=== PATIENT | female | born 2000 | race American Indian/Alaskan Native ===

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

== ENCOUNTER 2019-02-18 10:29 | Emergency (ER) | payer OTHER ==
[2019-02-18 10:38] VITALS: BP 132/79
[2019-02-18 11:36] LABS: HCG Qualitative,Urine Negative (Negative)
--- NOTE | 2019-02-18 11:37 | Emergency Department Report ---
ED General Adult HPI - General Chief complaint: Abdominal Pain Stated complaint: STOMACH PAIN Time Seen by Provider: 02/18/19 11:31 Source: patient Mode of arrival: Ambulatory Limitations: No Limitations - History of Present Illness Initial comments: Patient is 18 years old female, nontoxic, no significant past medical history. Patient presented to the ER initially stating to the triage nurse that if he can do a test for. Patient also did a lower abdominal pain since last night. Patient described her pain as suprapubic. Patient stated that last menstrual period was January 12 and she thinks that she is late. Patient denied any nausea or vomiting. No fever or chills. Severity scale (0 -10): 8 - Related Data Previous Rx's Medication Instructions Recorded Last Taken Type Ondansetron [Zofran Odt] 4 mg PO Q4H #14 tab.rapdis 02/08/14 Unknown Rx Acyclovir/Hydrocortisone [Xerese 1 applic TP TID #1 cream..g. 08/12/18 Unknown Rx 5%-1% Cream] valACYclovir [Valtrex] 500 mg PO TID #21 tab 08/12/18 Unknown Rx ALBUTEROL Inhaler (OR & NICU) 2 puff IH QID PRN #1 inhalation 12/22/18 Unknown Rx [ProAir HFA Inhaler] Benzonatate [Tessalon Perles] 100 mg PO Q8HR #10 capsule 12/22/18 Unknown Rx predniSONE [Deltasone] 20 mg PO QDAY #5 tab 12/22/18 Unknown Rx Allergies Allergy/AdvReac Type Severity Reaction Status Date / Time coconut Allergy Swelling Verified 02/18/19 10:31 ED Review of Systems ROS: Stated complaint: STOMACH PAIN Other details as noted in HPI Comment: All other systems reviewed and negative Constitutional: denies: chills, fever Respiratory: denies: cough, orthopnea, shortness of breath, SOB with exertion, SOB at rest, wheezing Cardiovascular: denies: chest pain, palpitations, dyspnea on exertion Gastrointestinal: abdominal pain. denies: nausea, vomiting Genitourinary: denies: dysuria, frequency Neurological: denies: headache, weakness ED Past Medical Hx - Past Medical History Previous Medical History?: No - Surgical History Past Surgical History?: No - Social History Smoking Status: Current Every Day Smoker Substance Use Type: None - Medications Home Medications: Home Medications Medication Instructions Recorded Confirmed Last Taken Type Ondansetron [Zofran Odt] 4 mg PO Q4H #14 tab.rapdis 02/08/14 Unknown Rx Acyclovir/Hydrocortisone [Xerese 1 applic TP TID #1 cream..g. 08/12/18 Unknown Rx 5%-1% Cream] valACYclovir [Valtrex] 500 mg PO TID #21 tab 08/12/18 Unknown Rx ALBUTEROL Inhaler (OR & NICU) 2 puff IH QID PRN #1 inhalation 12/22/18 Unknown Rx [ProAir HFA Inhaler] Benzonatate [Tessalon Perles] 100 mg PO Q8HR #10 capsule 12/22/18 Unknown Rx predniSONE [Deltasone] 20 mg PO QDAY #5 tab 12/22/18 Unknown Rx ED Physical Exam - General Limitations: No Limitations General appearance: alert, in no apparent distress - Head Head exam: Present: atraumatic, normocephalic, normal inspection - Respiratory Respiratory exam: Present: normal lung sounds bilaterally - Cardiovascular Cardiovascular Exam: Present: regular rate, normal heart sounds - GI/Abdominal GI/Abdominal exam: Present: soft, normal bowel sounds. Absent: distended, tenderness, guarding, rebound, rigid, organomegaly, mass, pulsatile mass, hernia - Extremities Exam Extremities exam: Present: normal inspection, full ROM, normal capillary refill - Back Exam Back exam: Present: normal inspection, full ROM. Absent: CVA tenderness (R), CVA tenderness (L) - Neurological Exam Neurological exam: Present: alert, oriented X3, CN II-XII intact, normal gait, reflexes normal - Skin Skin exam: Present: warm, intact, normal color ED Course Vital Signs 02/18/19 10:37 Temperature 98.6 F Pulse Rate 88 Respiratory 16 Rate Blood Pressure 132/79 O2 Sat by Pulse 100 Oximetry Critical care attestation.: If time is entered above; I have spent that time in minutes in the direct care of this critically ill patient, excluding procedure time. ED Disposition Clinical Impression: Abdominal pain Disposition: DC-01 TO HOME OR SELFCARE Is pt being admited?: No Condition: Stable Instructions: Abdominal Pain (ED) Referrals: [facility] [Provider Group] - 3-5 Days
[2019-02-18 12:42] LABS: Bilirubin,Urine Negative (Negative); Color,Urine Yellow (Yellow)
[2019-02-18 12:43] LABS: Blood,Urine Negative (Negative); Protein,Urine <15 mg/dL mg/dL (Negative)
[2019-02-18 12:45] LABS: Mucus,Urine Few /HPF
== END 2019-02-18 13:07 | disposition home or self-care (01) ==
LOC: ED 10:29
DX: R10.2 Pelvic and perineal pain (principal); F17.200 Nicotine dependence, unspecified, uncomplicated; Z79.899 Other long term (current) drug therapy
CPT/HCPCS: 81001; 81025; 99283

== ENCOUNTER 2019-10-02 10:31 | Emergency (ER) | payer SELFPAY ==
--- NOTE | 2019-10-02 11:42 | Emergency Department Report ---
Blank Doc - Documentation Documentation: 18-year-old female that presents with left ankle pain and swelling s/p fall. This initial assessment/diagnostic orders/clinical plan/treatment(s) is/are subject to change based on patient's health status, clinical progression and re- assessment by fellow clinical providers in the ED. Further treatment and workup at subsequent clinical providers discretion. Patient/guardians urged not to elope from the ED as their condition may be serious if not clinically assessed and managed. Initial orders include: 1- Patient sent to [facility] for further evaluation and treatment 2- xrays
--- NOTE | 2019-10-02 12:11 | XRay Report ---
LEFT ANKLE HISTORY: Pain and swelling. COMPARISON: None. TECHNIQUE: 3 views of the left ankle obtained. FINDINGS: Bones: No fracture or dislocation. Joint spaces: Maintained. Soft tissues: Moderate medial soft tissue swelling. No foreign body or soft tissue air. Additional findings: None. IMPRESSION: 1. Nonspecific medial soft tissue swelling. 2. No bone or joint abnormality. Signer Name: Berry Gruber MD Signed: 10/02/2019 12:06 PM Workstation Name: [id number]
--- NOTE | 2019-10-02 13:42 | Emergency Department Report ---
ED Fall HPI - General Chief Complaint: Extremity Injury, Lower Stated Complaint: LFT ANKLE FALL INJURY/PAIN Time Seen by Provider: 10/02/19 11:41 Source: patient Mode of arrival: Ambulatory - History of Present Illness Initial Comments: 17-year-old female complains of left ankle pain after tripping fall yesterday. She rates her pain at in 8/10 in severity. She denies any loss of sensation or decreased range of motion. Pain is worse on the lateral portion of the ankle. MD Complaint: fall -: Sudden Fall Witnessed: no Loss of Consciousness: none Symptoms Prior to Fall: none Location - Extremities: Left: Ankle Severity scale (0 -10): 8 Quality: aching Context: tripped/slipped Associated Symptoms: denies - Related Data Previous Rx's Medication Instructions Recorded Last Taken Type Ondansetron [Zofran Odt] 4 mg PO Q4H #14 tab.rapdis 02/08/14 Unknown Rx Acyclovir/Hydrocortisone [Xerese 1 applic TP TID #1 cream..g. 08/12/18 Unknown Rx 5%-1% Cream] valACYclovir [Valtrex] 500 mg PO TID #21 tab 08/12/18 Unknown Rx ALBUTEROL Inhaler (OR & NICU) 2 puff IH QID PRN #1 inhalation 12/22/18 Unknown Rx [ProAir HFA Inhaler] Benzonatate [Tessalon Perles] 100 mg PO Q8HR #10 capsule 12/22/18 Unknown Rx predniSONE [Deltasone] 20 mg PO QDAY #5 tab 12/22/18 Unknown Rx Naproxen [Naprosyn] 500 mg PO BID #14 tablet 02/18/19 Unknown Rx Ondansetron [Zofran Odt] 4 mg PO Q8HR PRN #10 tab.rapdis 07/13/19 Unknown Rx Ibuprofen [Motrin 800 MG tab] 800 mg PO ONCE PRN #21 tablet 10/02/19 Unknown Rx Allergies Allergy/AdvReac Type Severity Reaction Status Date / Time coconut Allergy Swelling Verified 02/18/19 10:31 ED Review of Systems ROS: Stated complaint: LFT ANKLE FALL INJURY/PAIN Other details as noted in HPI Musculoskeletal: as per HPI ED Past Medical Hx - Past Medical History Previous Medical History?: No - Surgical History Past Surgical History?: No - Social History Smoking Status: Never Smoker Substance Use Type: None - Medications Home Medications: Home Medications Medication Instructions Recorded Confirmed Last Taken Type Ondansetron [Zofran Odt] 4 mg PO Q4H #14 tab.rapdis 02/08/14 Unknown Rx Acyclovir/Hydrocortisone [Xerese 1 applic TP TID #1 cream..g. 08/12/18 Unknown Rx 5%-1% Cream] valACYclovir [Valtrex] 500 mg PO TID #21 tab 08/12/18 Unknown Rx ALBUTEROL Inhaler (OR & NICU) 2 puff IH QID PRN #1 inhalation 12/22/18 Unknown Rx [ProAir HFA Inhaler] Benzonatate [Tessalon Perles] 100 mg PO Q8HR #10 capsule 12/22/18 Unknown Rx predniSONE [Deltasone] 20 mg PO QDAY #5 tab 12/22/18 Unknown Rx Naproxen [Naprosyn] 500 mg PO BID #14 tablet 02/18/19 Unknown Rx Ondansetron [Zofran Odt] 4 mg PO Q8HR PRN #10 tab.rapdis 07/13/19 Unknown Rx Ibuprofen [Motrin 800 MG tab] 800 mg PO ONCE PRN #21 tablet 10/02/19 Unknown Rx ED Physical Exam - General Limitations: No Limitations General appearance: alert, in no apparent distress - Head Head exam: Present: atraumatic, normocephalic - Eye Eye exam: Present: normal appearance - ENT ENT exam: Present: mucous membranes moist - Neck Neck exam: Present: full ROM - Respiratory Respiratory exam: Absent: respiratory distress - Cardiovascular Cardiovascular Exam: Present: regular rate - Expanded Lower Extremity Exam Left Ankle exam: Present: tenderness, swelling. Absent: ecchymosis, deformity, crepidus - Neurological Exam Neurological exam: Present: alert, oriented X3 - Psychiatric Psychiatric exam: Present: normal affect, normal mood - Skin Skin exam: Present: warm, dry, intact, normal color. Absent: rash ED Course Vital Signs 10/02/19 11:41 Temperature 98.8 F Pulse Rate 92 H Respiratory 18 Rate Blood Pressure 105/73 O2 Sat by Pulse 100 Oximetry ED Medical Decision Making - Radiology Data Radiology results: report reviewed LEFT ANKLE HISTORY: Pain and swelling. COMPARISON: None. TECHNIQUE: 3 views of the left ankle obtained. FINDINGS: Bones: No fracture or dislocation. Joint spaces: Maintained. Soft tissues: Moderate medial soft tissue swelling. No foreign body or soft tissue air. Additional findings: None. IMPRESSION: 1. Nonspecific medial soft tissue swelling. 2. No bone or joint abnormality. - Medical Decision Making Patient presents for left ankle pain after fall yesterday. X-rays negative for fracture. Mild swelling noted on exam with normal range of motion, sensation, and perfusion. Patient to discharge home with conservative treatment using Beryl method and follow-up with orthopedics as needed. Return precautions were discussed in detail with patient who states understanding Critical care attestation.: If time is entered above; I have spent that time in minutes in the direct care of this critically ill patient, excluding procedure time. ED Disposition Clinical Impression: Left ankle sprain Qualifiers: Encounter type: initial encounter Involved ligament of ankle: other ligament Qualified Code(s): S93.492A - Sprain of other ligament of left ankle, initial encounter Disposition: TO HOME OR SELFCARE Is pt being admited?: No Condition: Stable Instructions: Ankle Sprain (ED) Prescriptions: Ibuprofen [Motrin 800 MG tab] 800 mg PO ONCE PRN #21 tablet PRN Reason: Pain , Severe (7-10)
[2019-10-02] MEDS ORDERED: IBUPROFEN 800 MG TAB PO ONE (14:25)
[2019-10-02 14:47] VITALS: BP 122/86
== END 2019-10-02 14:52 | disposition home or self-care (01) ==
LOC: ED 10:31
DX: S93.492A Sprain of other ligament of left ankle, initial encounter (principal); Z79.899 Other long term (current) drug therapy; Z91.018 Allergy to other foods; W01.0XXA Fall on same level from slipping, tripping and stumbling without subsequent striking against object, initial encounter; Y93.89 Activity, other specified; Y92.89 Other specified places as the place of occurrence of the external cause; Y99.8 Other external cause status

== ENCOUNTER 2019-12-25 10:37 | Emergency (ER) | payer SELFPAY ==
--- NOTE | 2019-12-25 12:14 | Emergency Department Report ---
ED Female HPI - General Chief complaint: Urogenital-Female Stated complaint: STOMACH PAIN Time Seen by Provider: 12/25/19 11:42 Source: patient Mode of arrival: Ambulatory Limitations: No Limitations - History of Present Illness Initial comments: This is a 19-year-old -[place] female who presents to the emergency room with pelvic pain, hematuria, and urinary frequency. Patient states symptoms started this morning. No significant past medical history. Last menstrual period December 04, 2019, 0. She denies fever, chills, urinary urgency, dysuria, back pain, or vaginal discharge. MD Complaint: pelvic pain, other (Hematuria) -: This morning Location: suprapubic Radiation: non-radiating Severity: mild Severity scale (0 -10): 3 Quality: cramping Consistency: intermittent Improves with: none Worsens with: urination Are you Now?: No Last Menstrual Period: 12/04/19 EDC: 09/09/20 Associated Symptoms: abdominal pain, hematuria. denies: vaginal discharge, vaginal bleeding, nausea/vomiting, fever/chills, headaches, loss of appetite, dysuria, rash, seizure, shortness of breath, syncope, weakness - Related Data Sexually active: Yes : 0 Previous Rx's Medication Instructions Recorded Last Taken Type Ondansetron [Zofran Odt] 4 mg PO Q4H #14 tab.rapdis 02/08/14 Unknown Rx Acyclovir/Hydrocortisone [Xerese 1 applic TP TID #1 cream..g. 08/12/18 Unknown Rx 5%-1% Cream] valACYclovir [Valtrex] 500 mg PO TID #21 tab 08/12/18 Unknown Rx Albuterol INH(or & Nicu Only) 2 puff IH QID PRN #1 inhalation 12/22/18 Unknown Rx [ProAir HFA Inhaler] Benzonatate [Tessalon Perles] 100 mg PO Q8HR #10 capsule 12/22/18 Unknown Rx predniSONE [Deltasone] 20 mg PO QDAY #5 tab 12/22/18 Unknown Rx Naproxen [Naprosyn] 500 mg PO BID #14 tablet 02/18/19 Unknown Rx Ondansetron [Zofran Odt] 4 mg PO Q8HR PRN #10 tab.rapdis 07/13/19 Unknown Rx Ibuprofen [Motrin 800 MG tab] 800 mg PO ONCE PRN #21 tablet 10/02/19 Unknown Rx Phenazopyridine [Pyridium] 200 mg PO TID #6 tab 12/25/19 Unknown Rx Sulfamethoxazole/Trimethoprim 1 each PO BID #6 tablet 12/25/19 Unknown Rx [Bactrim DS TAB] Allergies Allergy/AdvReac Type Severity Reaction Status Date / Time coconut Allergy Swelling Verified 02/18/19 10:31 ED Review of Systems ROS: Stated complaint: STOMACH PAIN Other details as noted in HPI Constitutional: denies: chills, fever Respiratory: denies: cough, shortness of breath, wheezing Cardiovascular: denies: chest pain, palpitations Gastrointestinal: abdominal pain. denies: nausea, diarrhea Genitourinary: frequency, hematuria. denies: urgency, dysuria, discharge, abnormal menses, dyspareunia Musculoskeletal: denies: back pain, joint swelling, arthralgia Skin: denies: rash, lesions Neurological: denies: headache, weakness, paresthesias Psychiatric: denies: anxiety, depression ED Past Medical Hx - Past Medical History Previous Medical History?: No - Surgical History Past Surgical History?: No - Social History Smoking Status: Never Smoker Substance Use Type: None - Medications Home Medications: Home Medications Medication Instructions Recorded Confirmed Last Taken Type Ondansetron [Zofran Odt] 4 mg PO Q4H #14 tab.rapdis 02/08/14 Unknown Rx Acyclovir/Hydrocortisone [Xerese 1 applic TP TID #1 cream..g. 08/12/18 Unknown Rx 5%-1% Cream] valACYclovir [Valtrex] 500 mg PO TID #21 tab 08/12/18 Unknown Rx Albuterol INH(or & Nicu Only) 2 puff IH QID PRN #1 inhalation 12/22/18 Unknown Rx [ProAir HFA Inhaler] Benzonatate [Tessalon Perles] 100 mg PO Q8HR #10 capsule 12/22/18 Unknown Rx predniSONE [Deltasone] 20 mg PO QDAY #5 tab 12/22/18 Unknown Rx Naproxen [Naprosyn] 500 mg PO BID #14 tablet 02/18/19 Unknown Rx Ondansetron [Zofran Odt] 4 mg PO Q8HR PRN #10 tab.rapdis 07/13/19 Unknown Rx Ibuprofen [Motrin 800 MG tab] 800 mg PO ONCE PRN #21 tablet 10/02/19 Unknown Rx Phenazopyridine [Pyridium] 200 mg PO TID #6 tab 12/25/19 Unknown Rx Sulfamethoxazole/Trimethoprim 1 each PO BID #6 tablet 12/25/19 Unknown Rx [Bactrim DS TAB] ED Physical Exam - General Limitations: No Limitations General appearance: alert, in no apparent distress, obese - Respiratory Respiratory exam: Present: normal lung sounds bilaterally. Absent: respiratory distress - Cardiovascular Cardiovascular Exam: Present: regular rate, normal rhythm. Absent: systolic murmur, diastolic murmur, rubs, gallop - GI/Abdominal GI/Abdominal exam: Present: soft, tenderness (Suprapubic), normal bowel sounds. Absent: distended, guarding, rebound, rigid, organomegaly - Extremities Exam Extremities exam: Present: normal inspection - Back Exam Back exam: Absent: CVA tenderness (R), CVA tenderness (L) - Neurological Exam Neurological exam: Present: alert, oriented X3, normal gait - Psychiatric Psychiatric exam: Present: normal affect, normal mood - Skin Skin exam: Present: warm, dry, intact, normal color. Absent: rash ED Course Vital Signs 12/25/19 12/25/19 10:44 13:15 Temperature 98.3 F Pulse Rate 105 H 86 Respiratory 16 17 Rate Blood Pressure 122/79 148/82 [Right] O2 Sat by Pulse 100 98 Oximetry ED Medical Decision Making - Lab Data Lab Results 12/25/19 Range/Units 12:19 Urine Color Yellow (Yellow) Urine Turbidity Cloudy (Clear) Urine pH 5.0 (5.0-7.0) Ur Specific [place] 1.020 (1.003-1.030) Urine Protein 100 mg/dl (Negative) mg/dL Urine Glucose (UA) Neg (Negative) mg/dL Urine Ketones Neg (Negative) mg/dL Urine Blood Mod (Negative) Urine Nitrite Neg (Negative) Urine Bilirubin Neg (Negative) Urine Urobilinogen < 2.0 (<2.0) mg/dL Ur Leukocyte Esterase Lg (Negative) Urine WBC (Auto) > 182.0 H (0.0-6.0) /HPF Urine RBC (Auto) 43.0 (0.0-6.0) /HPF U Epithel Cells (Auto) 10.0 (0-13.0) /HPF Urine Bacteria (Auto) 1+ (Negative) /HPF Ur Transition Epith Cell 5 /HPF Urine Mucus 1+ /HPF Urine HCG, Qual Negative (Negative) - Medical Decision Making This is a 19-year-old female that presents to the emergency room with hematuria, urinary frequency, and suprapubic pain since this morning. Patient in no acute distress. Patient is afebrile. Denies risk of STD, vaginal discharge, back pain, fever, chills, nausea, or vomiting. No abdominal tenderness or CVA tenderness on exam. According to history and exam symptoms are most likely related to a urinary tract infection. Work-up: Urinalysis and urine test. Urine test negative, urinalysis moderate blood, large leukocyte Estrace, elevated WBCs and RBCs. Patient will be treated for acute cystitis with antibiotics and pain medication. Instructed to follow-up with gynecology or primary care doctor. Patient discharged home stable with strict return instructions. Critical care attestation.: If time is entered above; I have spent that time in minutes in the direct care of this critically ill patient, excluding procedure time. ED Disposition Clinical Impression: Increased urinary frequency, Acute cystitis with hematuria Hematuria Qualifiers: Hematuria type: benign essential microscopic Qualified Code(s): R31.1 - Benign essential microscopic hematuria Disposition: TO HOME OR SELFCARE Is pt being admited?: No Condition: Stable Instructions: Urinary Tract Infection in Women (ED) Additional Instructions: Increase water intake to 1 L to 2 L daily. Complete antibiotics as prescribed. Symptoms should resolve in the next 2 to 3 days. Follow-up with a primary care doctor or director zone if symptoms worsen after treatment. Prescriptions: Sulfamethoxazole/Trimethoprim [Bactrim DS TAB] 1 each PO BID #6 tablet Phenazopyridine [Pyridium] 200 mg PO TID #6 tab Referrals: RACHANA VAUGHNTRIPOLICOLTON MD ERIKA [Primary Care Provider] - 3-5 Days [facility] [Outside] - 3-5 Days [facility] [Provider Group] - 3-5 Days [facility] [Provider Group] - 3-5 Days [facility] [Provider Group] - 3-5 Days Forms: Work/School Release Form(ED) Time of Disposition: 13:07
[2019-12-25 12:50] LABS: Bacteria,Urine 1+ /HPF (Negative); Bilirubin,Urine NEG (Negative); Blood,Urine MOD (Negative); Color,Urine Yellow (Yellow); Mucus,Urine 1+ /HPF; Urobilinogen,Urine < 2.0 mg/dL (<2.0)
[2019-12-25 12:52] LABS: HCG Qualitative,Urine Negative (Negative); WBC,Urine > 182.0 /HPF (0.0-6.0)
[2019-12-25 13:16] VITALS: BP 148/82
== END 2019-12-25 13:15 | disposition home or self-care (01) ==
LOC: ED 10:37
DX: N30.01 Acute cystitis with hematuria (principal)
CPT/HCPCS: 81001; 81025; 99283

== ENCOUNTER 2020-03-03 23:52 | Emergency (ER) | payer SELFPAY ==
--- NOTE | 2020-03-04 01:12 | Emergency Department Report ---
ED Female HPI - General Chief complaint: Urogenital-Female Stated complaint: ABD PAIN Source: patient Mode of arrival: Ambulatory Limitations: No Limitations - History of Present Illness Initial comments: Patient is a nulliparous 19-year-old -[place] female with no past medical history presents to the ED with complaint of acute onset persistent vaginal itching, vaginal irritation, vaginal discharge, and vaginal pain and swelling for the last 1 week. Patient states that she suspects that this resulted from the use of her sanitary pads during her menstrual cycle over a week ago. Patient states that the symptoms have been persistent since the onset. Patient denies dysuria, urinary frequency and urgency, dizziness, chest pain, shortness of breath, abdominal pain, dyspareunia, low back pain, nausea and vomiting, fever and chills. MD Complaint: vaginal discharge, other (Vaginal pain and irritation) -: Sudden, week(s) (1) Location: other (Vaginal) Radiation: non-radiating Severity: moderate Severity scale (0 -10): 6 Quality: sharp, aching Consistency: constant Improves with: none Worsens with: none Are you Now?: No Last Menstrual Period: 02/18/20 EDC: 11/24/20 Associated Symptoms: denies other symptoms, vaginal discharge, loss of appetite, other (Vaginal irritation, swelling and pain). denies: vaginal bleeding, abdominal pain, nausea/vomiting, fever/chills, headaches, dysuria, hematuria, ra sh, seizure, shortness of breath, syncope, weakness - Related Data Sexually active: Yes : 0 Para: 0 A: 0 Previous Rx's Medication Instructions Recorded Last Taken Type Ondansetron [Zofran Odt] 4 mg PO Q4H #14 tab.rapdis 02/08/14 Unknown Rx Acyclovir/Hydrocortisone [Xerese 1 applic TP TID #1 cream..g. 08/12/18 Unknown Rx 5%-1% Cream] valACYclovir [Valtrex] 500 mg PO TID #21 tab 08/12/18 Unknown Rx Albuterol INH(or & Nicu Only) 2 puff IH QID PRN #1 inhalation 12/22/18 Unknown Rx [ProAir HFA Inhaler] Benzonatate [Tessalon Perles] 100 mg PO Q8HR #10 capsule 12/22/18 Unknown Rx predniSONE [Deltasone] 20 mg PO QDAY #5 tab 12/22/18 Unknown Rx Naproxen [Naprosyn] 500 mg PO BID #14 tablet 02/18/19 Unknown Rx Ondansetron [Zofran Odt] 4 mg PO Q8HR PRN #10 tab.rapdis 07/13/19 Unknown Rx Ibuprofen [Motrin 800 MG tab] 800 mg PO ONCE PRN #21 tablet 10/02/19 Unknown Rx Phenazopyridine [Pyridium] 200 mg PO TID #6 tab 12/25/19 Unknown Rx Sulfamethoxazole/Trimethoprim 1 each PO BID #6 tablet 12/25/19 Unknown Rx [Bactrim DS TAB] Allergies Allergy/AdvReac Type Severity Reaction Status Date / Time coconut Allergy Swelling Verified 02/18/19 10:31 ED Review of Systems ROS: Stated complaint: ABD PAIN Other details as noted in HPI Constitutional: denies: chills, fever Eyes: denies: eye pain, eye discharge, vision change ENT: denies: ear pain, throat pain Respiratory: denies: cough, shortness of breath, wheezing Cardiovascular: denies: chest pain, palpitations Endocrine: no symptoms reported Gastrointestinal: denies: abdominal pain, nausea, diarrhea Genitourinary: discharge, other (vaginal pain and irritation). denies: urgency, dysuria Musculoskeletal: denies: back pain, joint swelling, arthralgia Skin: denies: rash, lesions Neurological: denies: headache, weakness, paresthesias Psychiatric: denies: anxiety, depression Hematological/Lymphatic: denies: easy bleeding, easy bruising ED Past Medical Hx - Past Medical History Previous Medical History?: No - Surgical History Past Surgical History?: No - Social History Smoking Status: Never Smoker Substance Use Type: None - Medications Home Medications: Home Medications Medication Instructions Recorded Confirmed Last Taken Type Ondansetron [Zofran Odt] 4 mg PO Q4H #14 tab.rapdis 02/08/14 Unknown Rx Acyclovir/Hydrocortisone [Xerese 1 applic TP TID #1 cream..g. 08/12/18 Unknown Rx 5%-1% Cream] valACYclovir [Valtrex] 500 mg PO TID #21 tab 08/12/18 Unknown Rx Albuterol INH(or & Nicu Only) 2 puff IH QID PRN #1 inhalation 12/22/18 Unknown Rx [ProAir HFA Inhaler] Benzonatate [Tessalon Perles] 100 mg PO Q8HR #10 capsule 12/22/18 Unknown Rx predniSONE [Deltasone] 20 mg PO QDAY #5 tab 12/22/18 Unknown Rx Naproxen [Naprosyn] 500 mg PO BID #14 tablet 02/18/19 Unknown Rx Ondansetron [Zofran Odt] 4 mg PO Q8HR PRN #10 tab.rapdis 07/13/19 Unknown Rx Ibuprofen [Motrin 800 MG tab] 800 mg PO ONCE PRN #21 tablet 10/02/19 Unknown Rx Phenazopyridine [Pyridium] 200 mg PO TID #6 tab 12/25/19 Unknown Rx Sulfamethoxazole/Trimethoprim 1 each PO BID #6 tablet 12/25/19 Unknown Rx [Bactrim DS TAB] ED Physical Exam - General Limitations: No Limitations General appearance: alert, in no apparent distress - Head Head exam: Present: atraumatic, normocephalic, normal inspection - Eye Eye exam: Present: normal appearance, PERRL, EOMI Pupils: Present: normal accommodation - ENT ENT exam: Present: normal exam, normal orophraynx, mucous membranes moist, TM's normal bilaterally, normal external ear exam - Neck Neck exam: Present: normal inspection, full ROM - Respiratory Respiratory exam: Present: normal lung sounds bilaterally. Absent: respiratory distress, wheezes, rales, rhonchi, chest wall tenderness, accessory muscle use, prolonged expiratory - Cardiovascular Cardiovascular Exam: Present: regular rate, normal rhythm, normal heart sounds. Absent: systolic murmur, diastolic murmur, rubs, gallop - GI/Abdominal GI/Abdominal exam: Present: soft, normal bowel sounds. Absent: tenderness, guar ding, rebound, hyperactive bowel sounds - Bi-manual exam: Present: other (Patient declined pelvic exam although there was a female RN graphic design assistant Ms. Mac) - Extremities Exam Extremities exam: Present: normal inspection, full ROM, normal capillary refill - Back Exam Back exam: Present: normal inspection, full ROM. Absent: tenderness, CVA tenderness (R), muscle spasm, paraspinal tenderness, vertebral tenderness - Neurological Exam Neurological exam: Present: alert, oriented X3, CN II-XII intact, normal gait - Psychiatric Psychiatric exam: Present: normal affect, normal mood - Skin Skin exam: Present: warm, dry, intact, normal color. Absent: rash ED Course Vital Signs 03/04/20 00:01 Temperature 99.1 F Pulse Rate 96 H Respiratory 18 Rate Blood Pressure 146/82 O2 Sat by Pulse 100 Oximetry ED Medical Decision Making - Medical Decision Making This is a nulliparous 19-year-old -[place] female with no past medical history presents to the ED with complaint of acute onset persistent vaginal itching, vaginal irritation, vaginal discharge, and vaginal pain and swelling for the last 1 week. Patient states that she suspects that this resulted from the use of her sanitary pads during her menstrual cycle over a week ago. Patimicheal t states that the symptoms have been persistent since the onset. In the ED, patient is alert and oriented x3 and is not in distress. Labs were ordered and pelvic exam set up but the patient declined pelvic exam although there was female RN graphic design assistant Ms. Mac. Patient left the ED AMA without signing paperwork. - Differential Diagnosis Bacterial vaginosis; STD; Alie vaginitis; UTI; Genital herpes Critical care attestation.: If time is entered above; I have spent that time in minutes in the direct care of this critically ill patient, excluding procedure time. ED Disposition Clinical Impression: Vaginal irritation, Vaginal discharge Disposition: - LEFT AGAINST MED ADVICE Is pt being admited?: No Does the pt Need Aspirin: No Condition: Stable Referrals: PRIMARY CARE, [Primary Care Provider] - 3-5 Days
[2020-03-05 12:59] VITALS: BP 146/82
== END 2020-03-04 01:08 | disposition left against medical advice (07) ==
LOC: ED 23:52
DX: N89.8 Other specified noninflammatory disorders of vagina (principal); R10.2 Pelvic and perineal pain; Z79.899 Other long term (current) drug therapy; Z91.018 Allergy to other foods
CPT/HCPCS: 99282

== ENCOUNTER 2020-07-19 07:08 | Emergency (ER) | payer SELFPAY ==
[2020-07-19 07:33] VITALS: BP 116/77
[2020-07-19 08:46] LABS: Bilirubin,Urine NEG (Negative); Blood,Urine NEG (Negative); Color,Urine Yellow (Yellow); Mucus,Urine FEW /HPF; Protein,Urine <15 mg/dL mg/dL (Negative); Urobilinogen,Urine < 2.0 mg/dL (<2.0)
[2020-07-19 08:47] LABS: HCG Qualitative,Urine Positive (Negative)
--- NOTE | 2020-07-19 09:32 | Emergency Department Report ---
ED Abdominal Pain HPI - General Chief Complaint: Abdominal Pain Stated Complaint: ABD PAIN Time Seen by Provider: 07/19/20 08:54 Source: patient Mode of arrival: Ambulatory Limitations: No Limitations - History of Present Illness Initial Comments: 19-year-old -T[place] female presents to the emergency room complaining of left flank abdominal pain x2 weeks and vomiting. Patient denies any vaginal discharge denies any vaginal bleeding. She denies any hematuria hematochezia or hematemesis. She does report vomiting 3 times in the last week. Nothing makes it worse nothing makes it better. She reports her last bowel movement was yesterday. She states that the pain is throbbing. She has taken nothing for her pain. Her last menstrual period was 06/08/2020. She is 0. She does not have a primary care provider. MD Complaint: abdominal pain Onset/Timin -: week(s) Location: suprapubic, L flank Radiation: none Severity scale (0 -10): 6 Quality: other (Throbbing) Consistency: intermittent Improves With: nothing Worsens With: nothing Associated Symptoms: vomiting (X3 in 1 weeks). denies: diarrhea, fever, hematemesis, hematochezia, hematuria - Related Data LMP Date: 06/08/20 Previous Rx's Medication Instructions Recorded Last Taken Type Ondansetron [Zofran Odt] 4 mg PO Q4H #14 tab.rapdis 02/08/14 Unknown Rx Acyclovir/Hydrocortisone [Xerese 1 applic TP TID #1 cream..g. 08/12/18 Unknown Rx 5%-1% Cream] valACYclovir [Valtrex] 500 mg PO TID #21 tab 08/12/18 Unknown Rx Albuterol Mdi (or & Nicu Only) 2 puff IH QID PRN #1 inhalation 12/22/18 Unknown Rx [ProAir HFA Inhaler] Benzonatate [Tessalon Perles] 100 mg PO Q8HR #10 capsule 12/22/18 Unknown Rx predniSONE [Deltasone] 20 mg PO QDAY #5 tab 12/22/18 Unknown Rx Naproxen [Naprosyn] 500 mg PO BID #14 tablet 02/18/19 Unknown Rx Ondansetron [Zofran Odt] 4 mg PO Q8HR PRN #10 tab.rapdis 07/13/19 Unknown Rx Ibuprofen [Motrin 800 MG tab] 800 mg PO ONCE PRN #21 tablet 10/02/19 Unknown Rx Phenazopyridine [Pyridium] 200 mg PO TID #6 tab 12/25/19 Unknown Rx Sulfamethoxazole/Trimethoprim 1 each PO BID #6 tablet 12/25/19 Unknown Rx [Bactrim DS TAB] Albuterol Mdi (or & Nicu Only) 2 puff IH QID PRN #8.5 gram 04/29/20 Unknown Rx [ProAir HFA Inhaler] Amoxicillin [Amoxicillin TAB] 875 mg PO BID #20 tablet 04/29/20 Unknown Rx Prednisone [predniSONE 10 mg 10 mg PO .TAPER #1 tab.ds.pk 04/29/20 Unknown Rx (6-Day Pack, 21 Tabs)] Vit-Fe Fumar-FA [ 1 tab PO QDAY #90 tablet 07/19/20 Unknown Rx Vitamin] Allergies Allergy/AdvReac Type Severity Reaction Status Date / Time coconut Allergy Swelling Verified 02/18/19 10:31 ED Review of Systems ROS: Stated complaint: ABD PAIN Other details as noted in HPI Comment: All other systems reviewed and negative ED Past Medical Hx - Past Medical History Previous Medical History?: No - Surgical History Past Surgical History?: No - Social History Smoking Status: Never Smoker Substance Use Type: None - Medications Home Medications: Home Medications Medication Instructions Recorded Confirmed Last Taken Type Ondansetron [Zofran Odt] 4 mg PO Q4H #14 tab.rapdis 02/08/14 Unknown Rx Acyclovir/Hydrocortisone [Xerese 1 applic TP TID #1 cream..g. 08/12/18 Unknown Rx 5%-1% Cream] valACYclovir [Valtrex] 500 mg PO TID #21 tab 08/12/18 Unknown Rx Albuterol Mdi (or & Nicu Only) 2 puff IH QID PRN #1 inhalation 12/22/18 Unknown Rx [ProAir HFA Inhaler] Benzonatate [Tessalon Perles] 100 mg PO Q8HR #10 capsule 12/22/18 Unknown Rx predniSONE [Deltasone] 20 mg PO QDAY #5 tab 12/22/18 Unknown Rx Naproxen [Naprosyn] 500 mg PO BID #14 tablet 02/18/19 Unknown Rx Ondansetron [Zofran Odt] 4 mg PO Q8HR PRN #10 tab.rapdis 07/13/19 Unknown Rx Ibuprofen [Motrin 800 MG tab] 800 mg PO ONCE PRN #21 tablet 10/02/19 Unknown Rx Phenazopyridine [Pyridium] 200 mg PO TID #6 tab 12/25/19 Unknown Rx Sulfamethoxazole/Trimethoprim 1 each PO BID #6 tablet 12/25/19 Unknown Rx [Bactrim DS TAB] Albuterol Mdi (or & Nicu Only) 2 puff IH QID PRN #8.5 gram 04/29/20 Unknown Rx [ProAir HFA Inhaler] Amoxicillin [Amoxicillin TAB] 875 mg PO BID #20 tablet 04/29/20 Unknown Rx Prednisone [predniSONE 10 mg 10 mg PO .TAPER #1 tab.ds.pk 04/29/20 Unknown Rx (6-Day Pack, 21 Tabs)] Vit-Fe Fumar-FA [ 1 tab PO QDAY #90 tablet 07/19/20 Unknown Rx Vitamin] ED Physical Exam - General Limitations: No Limitations General appearance: alert, in no apparent distress - Head Head exam: Present: atraumatic, normocephalic - Eye Eye exam: Present: normal appearance - ENT ENT exam: Present: mucous membranes moist - Neck Neck exam: Present: normal inspection - Respiratory Respiratory exam: Present: normal lung sounds bilaterally. Absent: respiratory distress - Cardiovascular Cardiovascular Exam: Present: regular rate - GI/Abdominal GI/Abdominal exam: Present: soft, tenderness (Left lower quadrant and suprapubic), normal bowel sounds. Absent: distended - Back Exam Back exam: Present: normal inspection, full ROM - Neurological Exam Neurological exam: Present: alert, oriented X3, normal gait - Psychiatric Psychiatric exam: Present: normal affect, normal mood - Skin Skin exam: Present: warm, dry, intact, normal color. Absent: rash ED Course Vital Signs 07/19/20 07:28 Temperature 98 F Pulse Rate 91 H Respiratory 16 Rate Blood Pressure 116/77 [Right] O2 Sat by Pulse 99 Oximetry ED Medical Decision Making - Radiology Data Radiology results: report reviewed Ordering Physician: SINA LEVY Date of Service: 07/19/20 Procedure(s): US OB transvaginal Accession Number(s): [id number] cc: SINA LEVY Early obstetrical ultrasound INDICATION: Positive test, left pain Transabdominal and endovaginal studies were performed. Uterus is retroverted and measures 7.3 x 5.2 x 6.5 cm. Intrauterine gestational sac is seen with yolk sac and pole identified. cardiac activity was seen at 98 bpm which is mildly low. Has been gestational age by crown-rump length is 5 weeks 6 days. There appears to be a small implantational bleed measuring 19 mm in length and 6 mm in thickness near the gestational sac. Left ovary measures 3.9 cm in length and shows no abnormalities. Right ovary measures 3 cm in length and shows a focal area of moderate internal echoes without blood flow which probably is a hemorrhagic corpus luteum cyst measuring 2.3 cm. Flow is seen in both ovaries. No free fluid is seen. IMPRESSION: 1. Early intrauterine 2. Small implantational bleed 3. Probable corpus luteum cyst on the right. Recommend follow-up. Signer Name: Emerson Christianson MD Signed: 07/19/2020 12:01 PM Workstation Name: [id number] Transcribed By: MINNIE Dictated By: Emerson Christianson MD Electronically Authenticated By: Emerson Christianson MD Signed Date/Time: 07/19/20 1201 DD/ 1157 TD/TT: - Medical Decision Making 19-year-old -T[place] female presents to the emergency room complaining of left flank abdominal pain x2 weeks and vomiting. Patient denies any vaginal discharge denies any vaginal bleeding. She denies any hematuria hematochezia or hematemesis. She does report vomiting 3 times in the last week. Nothing makes it worse nothing makes it better. She reports her last bowel movement was yesterday. She states that the pain is throbbing. She has taken nothing for her pain. Her last menstrual period was 06/08/2020. She is 0. She does not have a primary care provider. Positive urine test negative urinalysis. Ultrasound shows a early gestation approximately 5 weeks with a heart rate of 98 which is mildly low. Also shows that there is a left corpus luteum possibly hemorrhagic. It appears that it may be some implantation bleeding. I recommend patient to follow-up with an [facility]. Stay away from strenuous activity until seen by an [facility] provider. Take your vitamins increase your water intake avoid cigarettes illicit drugs ibuprofen only can take Tylenol. Critical care attestation.: If time is entered above; I have spent that time in minutes in the direct care of this critically ill patient, excluding procedure time. ED Disposition Clinical Impression: Qualifiers: Weeks of gestation: less than 8 weeks Qualified Code(s): Z3A.01 - Less than 8 weeks gestation of Disposition: - TO HOME OR SELFCARE Is pt being admited?: No Does the pt Need Aspirin: No Condition: Stable Instructions: Abdominal Pain (ED) Additional Instructions: I recommend patient to follow-up with an [facility]. Stay away from strenuous activity until seen by an [facility] provider. Take your vitamins increase your water intake avoid cigarettes illicit drugs ibuprofen only can take Tylenol. Prescriptions: Vit-Fe Fumar-FA [ Vitamin] 1 tab PO QDAY #90 tablet Referrals: PRIMARY CARE, [Primary Care Provider] - 3-5 Days [facility] [Provider Group] - 3-5 Days [facility] [Provider Group] - 3-5 Days [facility] [Provider Group] - 3-5 Days [facility] [Provider Group] - 3-5 Days Forms: Work/School Release Form(ED)
--- NOTE | 2020-07-19 12:06 | Ultrasound Report ---
Early obstetrical ultrasound INDICATION: Positive test, left pain Transabdominal and endovaginal studies were performed. Uterus is retroverted and measures 7.3 x 5.2 x 6.5 cm. Intrauterine gestational sac is seen with yolk sac and pole identified. cardiac activity was seen at 98 bpm which is mildly low. Has been gestational age by crown-rump length is 5 weeks 6 da ys. There appears to be a small implantational bleed measuring 19 mm in length and 6 mm in thickness near the gestational sac. Left ovary measures 3.9 cm in length and shows no abnormalities. Right ovary measures 3 cm in length and shows a focal area of moderate internal echoes without blood flow which probably is a hemorrhagic corpus luteum cyst measuring 2.3 cm. Flow is seen in both ovaries. No free fluid is seen. IMPRESSION: 1. Early intrauterine 2. Small implantational bleed 3. Probable corpus luteum cyst on the right. Recommend follow-up. Signer Name: Emerson Christianson MD Signed: 07/19/2020 12:01 PM Workstation Name: [id number]
== END 2020-07-19 12:27 | disposition home or self-care (01) ==
LOC: ED 07:08
DX: O21.8 Other vomiting complicating pregnancy (principal); O26.891 Other specified pregnancy related conditions, first trimester; R10.9 Unspecified abdominal pain; Z3A.01 Less than 8 weeks gestation of pregnancy; Z79.899 Other long term (current) drug therapy; Z88.8 Allergy status to other drugs, medicaments and biological substances
CPT/HCPCS: 36415; 76801; 76817; 81001; 81025; 84702

== ENCOUNTER 2020-07-21 15:22 | Emergency (ER) | payer SELFPAY ==
[2020-07-21 15:50] VITALS: BP 131/71
== END 2020-07-21 15:51 | disposition left against medical advice (07) ==
LOC: ED 15:22
DX: R10.9 Unspecified abdominal pain (principal); Z53.21 Procedure and treatment not carried out due to patient leaving prior to being seen by health care provider

== ENCOUNTER 2021-02-24 17:43 | Outpatient (CLI) | payer MEDICAID ==
[2021-02-24 18:41] VITALS: BP 125/72
== END 2021-02-24 20:50 | disposition home or self-care (01) ==
LOC: TRG 17:43 → APU 17:45 → TRG 20:50
PROVIDERS: ATTEND Obstetrics & Gynecology
DX: Z34.93 Encounter for supervision of normal pregnancy, unspecified, third trimester (principal); Z3A.37 37 weeks gestation of pregnancy
CPT/HCPCS: 59025

== ENCOUNTER 2021-03-15 09:03 | Outpatient (CLI) | payer MEDICAID ==
[2021-03-15 09:48] VITALS: BP 119/63
== END 2021-03-15 12:06 | disposition home or self-care (01) ==
LOC: TRG 09:03 → APU 09:05 → TRG 12:06
PROVIDERS: ATTEND Obstetrics & Gynecology
DX: O47.1 False labor at or after 37 completed weeks of gestation (principal); Z3A.40 40 weeks gestation of pregnancy
CPT/HCPCS: 59025

== ENCOUNTER 2021-03-16 13:38 | Inpatient (IN) | payer MEDICAID ==
[2021-03-16] MEDS ORDERED: MINERAL OIL 30 ML ORAL LIQD PO PRN (15:21)
[2021-03-16] MEDS ORDERED: ePHEDrine SULFATE 50 MG/1 ML INJ IV PRN (15:21)
[2021-03-16] MEDS ORDERED: TERBUTALINE 1 MG/1 ML INJ SUB-Q PRN (15:21)
[2021-03-16] MEDS ORDERED: LIDOCAINE (2%) 20 MG/1 ML VIAL 20 ML MDV INFILTRATI ONE (15:21)
[2021-03-16] MEDS ORDERED: BUTORPHANOL 2 MG/1 ML INJ IV PRN (15:23)
[2021-03-16] MEDS ORDERED: BUTORPHANOL 2 MG/1 ML INJ ONE (15:24)
[2021-03-16] MEDS ORDERED: LACTATED RINGERS 1,000 ML IV SCH (15:30)
[2021-03-16 15:32] LABS: Hematocrit 36.4 % (30.3-42.9); Hemoglobin 12.8 gm/dl (10.1-14.3); Mean Corpuscular HGB Conc 35 % (30-34); Mean Corpuscular Volume 87 fl (79-97); Platelet Count 252 K/mm3 (140-440); Red Blood Count 4.18 M/mm3 (3.65-5.03); Red Cell Distribution Width 14.6 % (13.2-15.2)
[2021-03-16] MEDS ORDERED: OXYTOCIN DRIP 30 UNITS/500 ML BAG IV SCH ×2 (16:00)
[2021-03-16] MEDS ORDERED: AMPICILLIN/NS 2 GM/100 ML 2 GM/100 ML BAG IV ONE ×3 (16:15→17:26)
[2021-03-16] MEDS ORDERED: NalbUPHINE 10 MG/1 ML INJ IV PRN (16:33)
[2021-03-16] MEDS ORDERED: LACTATED RINGERS 250 ML IV SOLN IV ONE (16:33)
[2021-03-16] MEDS ORDERED: diphenhydrAMINE 50 MG/ML VIAL IV PRN (16:33)
[2021-03-16] MEDS ORDERED: ONDANSETRON 4 MG/2 ML INJ IV PRN ×2 (16:33→21:33)
[2021-03-16] MEDS ORDERED: NALOXONE 2 MG/2 ML INJ IV PRN (16:33)
[2021-03-16] MEDS ORDERED: fentaNYL-BUPIV 2 MCG/ML-0.125% 200 MCG/100 ML BAG EPIDURAL SCH (17:00)
--- NOTE | 2021-03-16 17:09 | Anesthesia Consultation ---
Anesthesia Consult and Med Hx Date of service: 03/16/21 - Airway Anesthetic Teeth Evaluation: Good ROM Head & Neck: Adequate Mental/Hyoid Distance: Adequate Mallampati Class: Class III Intubation Access Assessment: Possibly Difficult - Pulmonary Exam CTA: Yes - Cardiac Exam Cardiac Exam: RRR - Pre-Operative Health Status ASA Pre-Surgery Classification: ASA2 Proposed Anesthetic Plan: Epidural - Pulmonary Hx Smoking: No Hx Asthma: Yes (last attack 2019) COPD: No Hx Pneumonia: No Hx Sleep Apnea: No - Cardiovascular System Hx Hypertension: No Hx Heart Attack/AMI: No Hx Angina: No - Central Nervous System Hx Seizures: No Hx Psychiatric Problems: No - Gastrointestinal Hx Gastroesophageal Reflux Disease: No - Endocrine Hx Renal Disease: No Hx End Stage Renal Disease: No Hx Liver Disease: No Hx Insulin Dependent Diabetes: No Hx Non-Insulin Dependent Diabetes: No Hx Hypothyroidism: No Hx Hyperthyroidism: No - Hematic Hx Anemia: No Hx Sickle Cell Disease: No - Other Systems Hx Alcohol Use: No Hx Obesity: Yes
--- NOTE | 2021-03-16 17:12 | Progress Note ---
Labor Epidural - Labor Epidural Start Time: 16:46 Stop Time: 17:03 Performed by:: JUSTIN RODRIGUEZ Procedure: Patient is requesting epidural for labor and pain. H&P, labs were reviewed. Patient IDed, H&P reviewed, all questions and concerns were answered, and consent was signed. Timeout was performed at bedside. Patient in sitting position. Sterile prep and drape was performed. 3ml of 1% lidocaine skin wheal at L[3]- L [4]. 18-gauge Tuohy epidural needle was advanced to bone at several trajectories, placement unsuccessful. 3ml of 1% lidocaine skin wheal at L[2]- L [3]. 18-gauge Tuohy epidural needle was advanced to loss of resistance with air technique 8cm. Negative CSF negative blood. Epidural catheter advanced to [14] centimeters. [negative] Aspiration [negative] test dose. Sterile dressing applied. Patient tolerated procedure.
--- NOTE | 2021-03-16 18:05 | Progress Note ---
Labor Epidural - Labor Epidural Start Time: 17:51 Stop Time: 18:04 Performed by:: VAHID LAWS Procedure: Epidural not working, removed tip removed. H&P, and labs reviewed. Procedure explained, questions answered, consent obtained. Patient in sitting position with blood pressure cuff and pulse ox on and working. Timeout performed immediately before start of procedure. Sterile chlorahexadine 0.5% prep/drape. 3 mL 1% lidocaine skin wheal at L[3]-L[4]. 18-gauge [employer] epidural needle advanced to [id number] with saline at 9 cm. Epidural catheter advanced to 15 cm, negative aspiration for blood and csf, negative test dose 3 ml 1.5% lidocaine with epinephrine. Epidural dexmedetomidine [30] mcg administered. Sterile steri-strips and tegaderm applied, followed by tape reinforcement. Patient tolerated procedure well. Vahid ARCHIBALD
--- NOTE | 2021-03-16 18:14 | History and Physical Report ---
History of Present Illness Date of examination: 03/16/21 Date of admission: 03/16/21 17:17 Chief complaint: I am having contractions History of present illness: Patient is 20-year-old 1 para 0 who was 40 1/7 weeks today with EDC 03/15/2021. records not available for review patient presented with contractions and dilation to 6 cm. We will treat for GBS unknown patient takes Valtrex when she has positive HSV however again records are not available. 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 08/12/18 03/16/21 Unknown Rx 5%-1% Cream] Albuterol Mdi (or & Nicu Only) 2 puff IH QID PRN #1 inhalation 12/22/18 03/16/21 Unknown Rx [ProAir HFA Inhaler] Benzonatate [Tessalon Perles] 100 mg PO Q8HR #10 capsule 12/22/18 03/16/21 Unknown Rx predniSONE [Deltasone] 20 mg PO QDAY #5 tab 12/22/18 03/16/21 Unknown Rx Naproxen [Naprosyn] 500 mg PO BID #14 tablet 02/18/19 03/16/21 Unknown Rx Ondansetron [Zofran Odt] 4 mg PO Q8HR PRN #10 tab.rapdis 07/13/19 03/16/21 Unknown Rx Ibuprofen [Motrin 800 MG tab] 800 mg PO ONCE PRN #21 tablet 10/02/19 03/16/21 Unknown Rx Phenazopyridine [Pyridium] 200 mg PO TID #6 tab 12/25/19 03/16/21 Unknown Rx Sulfamethoxazole/Trimethoprim 1 each PO BID #6 tablet 12/25/19 03/16/21 Unknown Rx [Bactrim DS TAB] Albuterol Mdi (or & Nicu Only) 2 puff IH QID PRN #8.5 gram 04/29/20 03/16/21 Unknown Rx [ProAir HFA Inhaler] Amoxicillin [Amoxicillin TAB] 875 mg PO BID #20 tablet 04/29/20 03/16/21 Unknown Rx Prednisone [predniSONE 10 mg 10 mg PO .TAPER #1 tab.ds.pk 04/29/20 03/16/21 Unknown Rx (6-Day Pack, 21 Tabs)] Vit-Fe Fumar-FA [ 1 tab PO QDAY #90 tablet 07/19/20 03/16/21 03/16/21 08:00 Rx Vitamin] valACYclovir [Valtrex] 500 mg PO BID 03/16/21 03/16/21 03/16/21 08:00 History Active Meds: Active Medications Butorphanol Tartrate (Butorphanol 2 Mg/1 Ml Inj) 2 mg IV Q2H PRN PRN Reason: Labor Pain Diphenhydramine HCl (Diphenhydramine 50 Mg/Ml Vial) 12.5 mg IV Q2H PRN PRN Reason: Itching Ephedrine Sulfate (Ephedrine Sulfate 50 Mg/1 Ml Inj) 10 mg IV Q2M PRN PRN Reason: Hypotension Oxytocin/Sodium Chloride (Pitocin/Ns 30 Unit/500ml) 30 units in 500 mls @ 2 mls/hr IV TITR LAVELL; Protocol Lactated Ringer's (Lactated Ringers) 1,000 mls @ 125 mls/hr IV DIRECT LAVELL Last Admin: 03/16/21 16:31 Dose: 125 mls/hr Documented by: Oxytocin/Sodium Chloride (Pitocin/Ns 30 Unit/500ml) 30 units in 500 mls @ 40 mls/hr IV TITR LAVELL; Protocol Fentanyl/Bupivacaine/Sodium Chlor (Fentanyl-Bupiv 2 Mcg/Ml-0.125%) 200 mcg in 100 mls @ 12 mls/hr EPIDURAL TITR LAVELL; Protocol Mineral Oil (Mineral Oil 30 Ml Oral Liqd) 30 ml PO QHS PRN PRN Reason: Constipation Nalbuphine HCl (Nalbuphine 10 Mg/1 Ml Inj) 2.5 mg IV Q2H PRN PRN Reason: Itching Naloxone HCl (Naloxone 2 Mg/2 Ml Inj) 0.2 mg IV Q5M PRN PRN Reason: Respiratory sedation Ondansetron HCl (Ondansetron 4 Mg/2 Ml Inj) 4 mg IV Q8H PRN PRN Reason: Nausea And Vomiting Terbutaline Sulfate (Terbutaline 1 Mg/1 Ml Inj) 0.25 mg SUB-Q ONCE PRN PRN Reason: Hyperstimulation/Hypertonicity Review of Systems All systems: negative Genitourinary: pelvic pain, contractions - Vital Signs Vital signs: Vital Signs Pulse Pulse Ox 120 H 95 03/16/21 13:56 03/16/21 13:56 Temp Pulse Resp BP Pulse Ox 98.6 F 116 H 20 134/80 89 03/16/21 14:03 03/16/21 18:07 03/16/21 15:33 03/16/21 18:01 03/16/21 18:07 - Physical Exam Breasts: Positive: deferred Cardiovascular: Regular rate, Normal S1, Normal S2 Lungs: Positive: Clear to auscultation, Normal air movement Abdomen: Positive: normal appearance, soft, normal bowel sounds Genitourinary (Female): Positive: normal external genitalia, normal perenium Vulva: both: normal Vagina: Positive: normal moisture Uterus: Positive: normal size, normal contour Adnexa: both: normal Extremities: Positive: normal Deep Tendon Reflex Grade: Normal +2 - Obstetrical FHR: auscultation normal Cervical Dilatation: 6 Cervical Effacement Percentage: 80 station: -2 Uterine Contraction Pattern: Regular Uterine Tone Measurement Phase: Contraction Uterine Contraction Intensity: Moderate Results Result Diagrams: 03/16/21 15:00 Abnormal lab results 03/16/21 Range/Units 15:00 MCHC 35 H (30-34) % All other labs normal. Assessment and Plan IUP at 40 and 1 in active labor admit for same. Treat for GBS unknown. AROM when able. Patient may have epidural. Dissipate .
--- NOTE | 2021-03-16 18:15 | Procedure Note ---
OB Delivery Note - Delivery Date of Delivery: 03/16/21 Surgeon: DARIUSZ MOELLER - Vaginal Delivery presentation: vertex Delivery position: OA Intrapartum events: none Delivery induction: none Delivery augmentation: rupture of membranes Delivery monitor: external FHT, external uterine Route of delivery: vacuum extraction (Vacuum placed on the perineum 1 pull delivered baby) Delivery placenta: spontaneous Delivery cord: 3 umbilical vessels Episiotomy: none Delivery laceration: 1st degree Delivery repair: vicryl Anesthesia: epidural Delivery comments: Viable male delivered over intact perineum with minimal vacuum assistance. not had spontaneous cry cord was clamped and cut. Infant was handed to the waiting NICU personnel. Placenta delivered spontaneously and intact. Small perineal laceration was repaired with 2-0 Vicryl. Patient tolerated procedure well. - Infant A at 1 minute: 8 at 5 minutes: 9 Infant Gender: Male
[2021-03-16] MEDS ORDERED: AMPICILLIN/NS 1 GM/50 ML 1 GM/50 ML BAG IV SCH (21:00)
[2021-03-16 21:30] LABS: Hematocrit 34.4 % (30.3-42.9); Hemoglobin 11.5 gm/dl (10.1-14.3)
[2021-03-16] MEDS ORDERED: LANOLIN/ZINC/DIMETHICONE (LANSINOH) 7 GM TP PRN (21:33)
[2021-03-16] MEDS ORDERED: PROMETHAZINE 25 MG TAB PO PRN (21:33)
[2021-03-16] MEDS ORDERED: ACETAMINOPHEN 325 MG TAB PO PRN (21:33)
[2021-03-16] MEDS ORDERED: PROMETHAZINE 25 MG RECT SUPP PR PRN (21:33)
[2021-03-16] MEDS ORDERED: WITCH HAZEL/ GLYCERIN PAD TP PRN (21:33)
[2021-03-16] MEDS ORDERED: diphenhydrAMINE 25 MG CAP PO PRN (21:33)
[2021-03-16] MEDS ORDERED: HYDROcodone/ACETAMINOPHEN 5-325 MG TAB PO PRN (21:33)
[2021-03-16] MEDS ORDERED: MAGNESIUM HYDROXIDE (MOM) ORAL LIQD UDC PO PRN (21:33)
[2021-03-16] MEDS: IBUPROFEN 600 MG TAB PO SCH (23:24)
[2021-03-16] MEDS: DOCUSATE SODIUM 100 MG CAP PO SCH (23:25)
[2021-03-17] MEDS: IBUPROFEN 600 MG TAB PO SCH ×2 (05:42→17:56)
[2021-03-17 07:31] LABS: Hematocrit 31.2 % (30.3-42.9); Hemoglobin 10.6 gm/dl (10.1-14.3)
--- NOTE | 2021-03-17 08:51 | Progress Note ---
Assessment and Plan A: ~ 14 hrs s/p VAVD at term Morbid Obesity P: Routine care Anticipate discharge tomorrow Subjective - Subjective Date of service: 03/17/21 Principal diagnosis: s/p VAVD at term Interval history: Pt without complaints presently. Patient reports: appetite normal, voiding normally, pain well controlled, ambulating normally [place]: doing well Objective - Vital Signs Latest vital signs: Vital Signs Temp Pulse Resp BP BP Pulse Ox 03/17/21 05:42 14 03/17/21 04:00 98.7 F 74 16 114/75 03/17/21 00:08 98.0 F 106 H 18 108/55 97 03/16/21 23:24 12 03/16/21 20:35 98.7 F 90 14 121/61 100 03/16/21 20:04 103 H 100 03/16/21 20:02 111 H 128/69 94 03/16/21 19:59 105 H 100 03/16/21 19:54 101 H 100 03/16/21 19:49 102 H 99 03/16/21 19:47 103 H 110/59 03/16/21 19:44 115 H 100 03/16/21 19:39 98 H 100 03/16/21 19:34 107 H 100 03/16/21 19:29 113 H 97 03/16/21 19:24 110 H 99 03/16/21 19:19 112 H 97 03/16/21 19:16 113 H 111/59 03/16/21 19:14 107 H 100 03/16/21 19:09 114 H 100 03/16/21 19:04 100 H 100 03/16/21 19:01 103 H 118/59 03/16/21 19:00 103 H 18 118/59 03/16/21 18:59 103 H 100 03/16/21 18:57 115 H 124/72 03/16/21 18:55 99 H 94 03/16/21 18:54 90 03/16/21 18:36 126 H 78 L 03/16/21 18:33 146 H 140/81 03/16/21 18:31 120 H 100 03/16/21 18:29 161 H 75 L 03/16/21 18:26 136 H 100 03/16/21 18:21 114 H 100 03/16/21 18:17 107 H 109/57 03/16/21 18:16 105 H 96 03/16/21 18:11 117 H 97 03/16/21 18:07 116 H 89 03/16/21 18:06 116 H 97 03/16/21 18:01 118 H 134/80 96 03/16/21 17:56 119 H 99 03/16/21 17:51 112 H 99 03/16/21 17:45 111 H 75 L 03/16/21 17:43 113 H 115/82 03/16/21 17:31 100 H 138/81 03/16/21 17:29 106 H 133/68 99 03/16/21 17:27 125 H 139/79 03/16/21 17:25 104 H 140/80 03/16/21 17:24 114 H 100 03/16/21 17:23 111 H 137/75 03/16/21 17:21 108 H 138/75 03/16/21 17:19 101 H 124/60 98 03/16/21 17:17 92 H 122/58 03/16/21 17:15 94 H 113/56 03/16/21 17:14 97 H 98 03/16/21 17:13 98 H 120/58 03/16/21 17:11 109 H 122/64 03/16/21 17:09 112 H 135/72 100 03/16/21 17:07 117 H 141/67 03/16/21 17:05 116 H 152/83 03/16/21 17:03 117 H 100 03/16/21 16:54 111 H 99 03/16/21 16:49 123 H 99 03/16/21 16:44 118 H 99 03/16/21 15:33 20 03/16/21 15:11 88 99 03/16/21 15:06 116 H 98 03/16/21 15:01 108 H 97 03/16/21 14:56 106 H 99 03/16/21 14:51 120 H 99 03/16/21 14:16 119 H 97 03/16/21 14:11 123 H 99 03/16/21 14:09 94 H 91 03/16/21 14:06 108 H 100 03/16/21 14:04 106 H 137/88 03/16/21 14:03 98.6 F 132 H 20 146/95 97 03/16/21 14:01 113 H 98 03/16/21 13:57 113 H 146/95 03/16/21 13:56 120 H 95 Intake and Output 03/16/21 03/17/21 03/17/21 22:59 06:59 14:59 Intake Total 300 Output Total 25 800 Balance -25 -500 Intake: Intake, Free Water 300 Output: Urine 25 800 Void 25 800 Other: Total, Output Amount 25 200 # Voids Void 1 1 - Exam Breasts: Present: deferred Abdomen: Present: soft Uterus: Present: fundal height at umbilicus Extremities: Present: edema (trace ) - Labs Labs: Abnormal lab results 03/16/21 Range/Units 15:00 MCHC 35 H (30-34) %
[2021-03-17] MEDS ORDERED: BENZOCAINE/MENTHOL 20/0.5% TOP SPRAY 56 GM TP PRN (08:52)
[2021-03-17] MEDS: DOCUSATE SODIUM 100 MG CAP PO SCH (10:17)
--- NOTE | 2021-03-17 15:45 | Post Anesthesia Evaluation ---
- Post Anesthesia Evaluation Patient Participated: Yes Airway Patent: Yes Stable Respiratory Function: Yes Nausea/Vomiting: No Temp > 96.8F: Yes Pain Manageable: Yes Adequeate Hydration: Yes Anesthesia Complications: No Block Receding Appropriately: Yes Patient on Ventilator: No
[2021-03-18] MEDS: DOCUSATE SODIUM 100 MG CAP PO SCH ×2 (00:09→12:34)
[2021-03-18] MEDS: IBUPROFEN 600 MG TAB PO SCH ×3 (00:09→17:26)
--- NOTE | 2021-03-18 07:57 | Progress Note ---
Assessment and Plan A: PPD #2 s/p VAVD at term Morbid Obesity P: Continue with routine care until discharge this morning. Subjective - Subjective Date of service: 03/18/21 Principal diagnosis: s/p VAVD at term Interval history: PPD# 2 s/p VAVD at term. Patient is feeling well and has no complaints. Lochia decreasing and pain is well controlled. Patient reports: appetite normal, voiding normally, pain well controlled, bowel movement, ambulating normally : doing well Objective - Vital Signs Latest vital signs: Vital Signs Temp Pulse Resp BP Pulse Ox 03/18/21 00:01 98.5 F 91 H 20 109/59 98 03/17/21 12:09 98.3 F 98 H 18 119/70 100 03/17/21 09:37 97.6 F 87 18 106/62 99 Intake and Output 03/17/21 03/17/21 03/18/21 15:59 23:59 07:59 Intake Total 200 120 Balance 200 120 Intake: Oral 200 120 Other: Total, Intake Amount 200 120 # Voids Void 1 1 1 - Exam Uterus: Present: normal, fundal height below umbilicus
--- NOTE | 2021-03-18 07:58 | Discharge Summary ---
Providers - Providers Date of Admission: 03/16/21 17:17 Date of discharge: 03/18/21 Attending physician: VITA YAN Primary care physician: VITA YAN Hospitalization Reason for admission: active labor, IUP at term Delivery: , vacuum extraction Episiotomy: none Laceration: 1st degree Other procedures: none complications: none Discharge diagnosis: IUP at term delivered [place] baby: male Hospital course: Uncomplicated Condition at discharge: Good Disposition: [id number] TO HOME OR SELFCARE Plan - Provider Discharge Summary Activity: no sex for 6 weeks, no heavy lifting 4 weeks, no strenuous exercise Diet: routine Instructions: routine Additional instructions: [] Smoking cessation referral if applicable(refer to patient education folder for contact #) [] Refer to [facility]'s [facility] Booklet Call your doctor immediately for: * Fever > 100.5 * Heavy vaginal bleeding ( >1 pad per hour) * Severe persistent headache * Shortness of breath * Reddened, hot, painful area to leg or breast * Drainage or odor from incision. * Keep incision clean and dry at all times and follow doctor's instructions regarding bathing/showering - Follow up plan Follow up: VITA YAN MD [Primary Care Provider] - 04/14/21
[2021-03-18] MEDS ORDERED: AMMONIA INHALANT IH ONE (10:24)
[2021-03-18] MEDS ORDERED: [UNRECOGNIZED DRUG - OTHER] IH ONE (14:00)
[2021-03-18 18:47] VITALS: BP 121/76
== END 2021-03-18 20:45 | disposition home or self-care (01) | DRG 774 ==
LOC: TRG 13:38 → APU 13:40 → LD 14:48 → TRG 17:10 → LD 17:17 → OB 20:40
PROVIDERS: ADMIT Obstetrics & Gynecology; ATTEND Obstetrics & Gynecology
PROC: 10D07Z6 Extraction of Products of Conception, Vacuum, Via Natural or Artificial Opening (ICD-10-PCS; principal; 2021-03-16)
PROC: 3E0R3BZ Introduction of Anesthetic Agent into Spinal Canal, Percutaneous Approach (ICD-10-PCS; 2021-03-16)
PROC: 00HU33Z Insertion of Infusion Device into Spinal Canal, Percutaneous Approach (ICD-10-PCS; 2021-03-16)
PROC: 10907ZC Drainage of Amniotic Fluid, Therapeutic from Products of Conception, Via Natural or Artificial Opening (ICD-10-PCS; 2021-03-16)
PROC: 0HQ9XZZ Repair Perineum Skin, External Approach (ICD-10-PCS; 2021-03-16)
DX: O99.214 Obesity complicating childbirth (principal); O98.32 Other infections with a predominantly sexual mode of transmission complicating childbirth; O99.52 Diseases of the respiratory system complicating childbirth; O70.1 Second degree perineal laceration during delivery; E66.01 Morbid (severe) obesity due to excess calories; Z20.822 Contact with and (suspected) exposure to COVID-19; Z37.0 Single live birth; O66.5 Attempted application of vacuum extractor and forceps; Z3A.40 40 weeks gestation of pregnancy; A60.09 Herpesviral infection of other urogenital tract
CPT/HCPCS: 36415; 59025; 85014; 85018; 85027; 86850; 86900; 86901; G0378; J0290; J0595; J7120; U0003

== ENCOUNTER 2022-06-25 20:49 | Inpatient (IN) | payer MEDICAID ==
[2022-06-25] MEDS ORDERED: miSOPROStol 200 MCG TAB PR PRN (21:37)
[2022-06-25] MEDS ORDERED: fentaNYL 100 MCG/2 ML INJ IV PRN (21:37)
[2022-06-25] MEDS ORDERED: LOPERAMIDE 2 MG CAP PO PRN (21:37)
[2022-06-25] MEDS ORDERED: MINERAL OIL 30 ML ORAL LIQD PO PRN (21:37)
[2022-06-25] MEDS ORDERED: TERBUTALINE 1 MG/1 ML INJ SUB-Q PRN (21:37)
[2022-06-25] MEDS ORDERED: NALOXONE 0.4 MG/1 ML INJ IV PRN (21:37)
[2022-06-25] MEDS ORDERED: ONDANSETRON 4 MG/2 ML INJ IV PRN (21:37)
[2022-06-25] MEDS ORDERED: ACETAMINOPHEN 325 MG TAB PO PRN (21:37)
[2022-06-25] MEDS ORDERED: METHYLERGONOVINE MALEATE 0.2 MG/ML VIAL IM PRN (21:37)
[2022-06-25] MEDS ORDERED: CARBOPROST TROMETHAMINE 250 MCG/1 ML INJ IM PRN (21:37)
[2022-06-25] MEDS ORDERED: ePHEDrine SULFATE 50 MG/1 ML INJ IV PRN (21:37)
[2022-06-25] MEDS ORDERED: LIDOCAINE (2%) 20 MG/1 ML VIAL 20 ML MDV INFILTRATI ONE (21:37)
[2022-06-25] MEDS ORDERED: OXYTOCIN 10 UNIT/1 ML INJ IM PRN (21:37)
[2022-06-25] MEDS ORDERED: OXYTOCIN DRIP 30 UNITS/500 ML BAG IV SCH ×2 (22:00)
[2022-06-25] MEDS ORDERED: DINOPROSTONE 10 MG VAG SUPP VG ONE (23:37)
[2022-06-25 23:41] LABS: Hematocrit 36.7 % (30.3-42.9); Hemoglobin 12.3 gm/dl (10.1-14.3); Mean Corpuscular HGB Conc 34 % (30-34); Mean Corpuscular Volume 89 fl (79-97); Platelet Count 199 K/mm3 (140-440); Red Blood Count 4.11 M/mm3 (3.65-5.03); Red Cell Distribution Width 14.5 % (13.2-15.2)
[2022-06-25] MEDS: LACTATED RINGERS 1,000 ML IV SCH (23:54)
[2022-06-25] MEDS: valACYclovir 500 MG TAB PO SCH (23:54)
--- NOTE | 2022-06-26 08:13 | History and Physical Report ---
History of Present Illness Date of examination: 06/26/22 Date of admission: 06/25/22 21:37 Chief complaint: Induction of labor History of present illness: 21-year-old -0-0-1 at 39+0 weeks being admitted for induction of labor secondary to morbid obesity. The patient initiated care in the first trimester of her . Her course has been complicated by STD exposure, findings of echogenic dilated bile on the fetus which resolved, histo ry of genital herpes for which the patient has been on prophylactic therapy since 35 weeks estimate gestational age, and a history of a subchorionic hemorrhage during the first trimester. The patient is GBS negative. Past History Past Medical History: no pertinent history Past Surgical History: no surgical history Social history: single - Obstetrical History Expected Date of Delivery: 07/03/22 Actual Gestation: 39 Week(s) 0 Day(s) : 2 Para: 1 Hx # Term Pregnancies: 1 Number of Pregnancies: 0 Spontaneous Abortions: 0 Induced : 0 Number of Living Children: 1 Medications and Allergies Allergies Allergy/AdvReac Type Severity Reaction Status Date / Time coconut Allergy Swelling Verified 02/18/19 10:31 Home Medications Medication Instructions Recorded Confirmed Last Taken Type Ondansetron [Zofran Odt] 4 mg PO Q4H #14 tab.rapdis 02/08/14 03/16/21 Unknown Rx Acyclovir/Hydrocortisone [Xerese 1 applic TP TID #1 cream..g. 08/12/18 03/16/21 Unknown Rx 5%-1% Cream] Albuterol Mdi (or & Nicu Only) 2 puff IH QID PRN #1 inhalation 12/22/18 03/16/21 Unknown Rx [ProAir HFA Inhaler] Benzonatate [Tessalon Perles] 100 mg PO Q8HR #10 capsule 12/22/18 03/16/21 Unknown Rx predniSONE [Deltasone] 20 mg PO QDAY #5 tab 12/22/18 03/16/21 Unknown Rx Naproxen [Naprosyn] 500 mg PO BID #14 tablet 02/18/19 03/16/21 Unknown Rx Ondansetron [Zofran Odt] 4 mg PO Q8HR PRN #10 tab.rapdis 07/13/19 03/16/21 Unknown Rx Ibuprofen [Motrin 800 MG tab] 800 mg PO ONCE PRN #21 tablet 10/02/19 03/16/21 Unknown Rx Phenazopyridine [Pyridium] 200 mg PO TID #6 tab 12/25/19 03/16/21 Unknown Rx Sulfamethoxazole/Trimethoprim 1 each PO BID #6 tablet 12/25/19 03/16/21 Unknown Rx [Bactrim DS TAB] Albuterol Mdi (or & Nicu Only) 2 puff IH QID PRN #8.5 gram 04/29/20 03/16/21 Unknown Rx [ProAir HFA Inhaler] Amoxicillin [Amoxicillin TAB] 875 mg PO BID #20 tablet 04/29/20 03/16/21 Unknown Rx Prednisone [predniSONE 10 mg 10 mg PO .TAPER #1 tab.ds.pk 04/29/20 03/16/21 Unknown Rx (6-Day Pack, 21 Tabs)] Vit-Fe Fumar-FA [ 1 tab PO QDAY #90 tablet 07/19/20 03/16/21 03/16/21 08:00 Rx Vitamin] valACYclovir [Valtrex] 500 mg PO BID 03/16/21 03/16/21 03/16/21 08:00 History Ibuprofen [Motrin] 600 mg PO Q8H PRN #30 tablet 03/18/21 Unknown Rx Active Meds: Active Medications Acetaminophen (Acetaminophen 325 Mg Tab) 650 mg PO Q4H PRN PRN Reason: Pain, Mild (1-3) Butorphanol Tartrate (Butorphanol 2 Mg/1 Ml Inj) 1 mg IV Q2H PRN PRN Reason: Pain, Moderate(4-6) LABOR PAIN Carboprost Tromethamine (Carboprost Tromethamine 250 Mcg/1 Ml Inj) 250 mcg IM ONCE PRN PRN Reason: Uterine Bleeding Ephedrine Sulfate (Ephedrine Sulfate 50 Mg/1 Ml Inj) 10 mg IV Q2M PRN PRN Reason: Hypotension Fentanyl (Fentanyl 100 Mcg/2 Ml Inj) 100 mcg IV Q2H PRN PRN Reason: Pain,Severe (7-10) LABOR PAIN Oxytocin/Sodium Chloride (Pitocin/Ns 30 Unit/500ml) 30 units in 500 mls @ 2 mls/hr IV TITR [facility]; Protocol Lactated Ringer's (Lactated Ringers) 1,000 mls @ 125 mls/hr IV DIRECT [facility] Last Admin: 06/25/22 23:54 Dose: 125 mls/hr Oxytocin/Sodium Chloride (Pitocin/Ns 30 Unit/500ml) 30 units in 500 mls @ 40 mls/hr IV TITR [facility]; Protocol Ceftriaxone Sodium 500 mg/ (Sodium Chloride) 50 mls @ 100 mls/hr IV Q24H [facility]; Protocol Loperamide HCl (Loperamide 2 Mg Cap) 2 mg PO ONCE PRN PRN Reason: give with Hemabate Methylergonovine Maleate (Methylergonovine Maleate 0.2 Mg/Ml Vial) 0.2 mg IM ONCE PRN PRN Reason: Uterine Bleeding Mineral Oil (Mineral Oil 30 Ml Oral Liqd) 30 ml PO QHS PRN PRN Reason: Constipation Misoprostol (Misoprostol 200 Mcg Tab) 800 mcg WI ONCE PRN PRN Reason: Uterine Bleeding Naloxone HCl (Naloxone 0.4 Mg/1 Ml Inj) 0.1 mg IV Q2MIN PRN PRN Reason: Res Rate </= 8 or 02 SAT < 92% Ondansetron HCl (Ondansetron 4 Mg/2 Ml Inj) 4 mg IV Q8H PRN PRN Reason: Nausea And Vomiting Oxytocin (Oxytocin 10 Unit/1 Ml Inj) 10 unit IM ONCE PRN PRN Reason: Uterine Bleeding Terbutaline Sulfate (Terbutaline 1 Mg/1 Ml Inj) 0.25 mg SUB-Q ONCE PRN PRN Reason: Hyperstimulation/Hypertonicity Valacyclovir HCl (Valacyclovir 500 Mg Tab) 1,000 mg PO QDAY [facility] Last Admin: 06/25/22 23:54 Dose: 1,000 mg Review of Systems All systems: negative Genitourinary: no leakage of fluid - Vital Signs Vital signs: Vital Signs Pulse Pulse Ox 73 99 06/25/22 21:49 06/25/22 21:49 Temp Pulse Resp BP Pulse Ox 98 F 85 20 118/73 100 06/26/22 07:49 06/26/22 08:06 06/26/22 07:49 06/26/22 07:09 06/26/22 08:06 - Physical Exam Breasts: Positive: deferred Cardiovascular: Regular rate Lungs: Positive: Clear to auscultation Abdomen: Positive: normal appearance Results Result Diagrams: 06/25/22 22:39 All other labs normal. Assessment and Plan - Patient Problems (1) Morbid obesity Current Visit: Yes Status: Acute Plan to address problem: Admit for induction of labor
[2022-06-26] MEDS: LACTATED RINGERS 1,000 ML IV SCH ×2 (15:05→22:25)
[2022-06-26] MEDS: valACYclovir 500 MG TAB PO SCH (22:13)
[2022-06-27] MEDS: BUTORPHANOL 2 MG/1 ML INJ IV PRN ×3 (00:31→04:46)
[2022-06-27] MEDS ORDERED: fentaNYL-BUPIV 2 MCG/ML-0.125% 200 MCG/100 ML BAG EPIDURAL SCH (05:25)
[2022-06-27] MEDS ORDERED: NALOXONE 0.4 MG/1 ML INJ IV PRN (05:25)
[2022-06-27] MEDS ORDERED: ePHEDrine SULFATE 50 MG/1 ML INJ IV PRN (05:25)
--- NOTE | 2022-06-27 05:27 | Anesthesia Day of Surgery ---
Anesthesia Day of Surgery - Day of Surgery Patient Examined: Yes Patient H&P Reviewed: Yes Patient is NPO: Yes Beta Blockers: No Cardiac Clearance: No Pulmonary Clearance: No Mario's Test: N/A
--- NOTE | 2022-06-27 05:27 | Anesthesia Consultation ---
Anesthesia Consult and Med Hx Date of service: 06/27/22 - Airway Anesthetic Teeth Evaluation: Good ROM Head & Neck: Adequate Mental/Hyoid Distance: Adequate Mallampati Class: Class II Intubation Access Assessment: Probably Good - Pulmonary Exam CTA: Yes - Cardiac Exam Cardiac Exam: RRR - Pre-Operative Health Status ASA Pre-Surgery Classification: ASA2 Proposed Anesthetic Plan: Epidural - Pulmonary Hx Smoking: No Hx Asthma: Yes (last attack 2019) Hx Respiratory Symptoms: No SOB: No COPD: No Home Oxygen Therapy: No Hx Pneumonia: No Hx Sleep Apnea: No - Cardiovascular System Hx Hypertension: No Hx Coronary Artery Disease: No Hx Heart Attack/AMI: No Hx Angina: No Hx Percutaneous Transluminal Coronary Angioplasty (PTCA): No Hx Cardia Arrhythmia: No Hx Pacemaker: No Hx Internal Defibrillator: No Hx Valvular Heart Disease: No Hx Heart Murmur: No Hx Peripheral Vascular Disease: No - Central Nervous System Hx Neuromuscular Disorder: No Hx Seizures: No CVA: No Hx Back Pain: No Hx Psychiatric Problems: No - Gastrointestinal Hx Ulcer: No Hx Gastroesophageal Reflux Disease: No - Endocrine Hx Renal Disease: No Hx End Stage Renal Disease: No Hx Cirrhosis: No Hx Liver Disease: No Hx Insulin Dependent Diabetes: No Hx Non-Insulin Dependent Diabetes: No Hx Thyroid Disease: No Hx Hypothyroidism: No Hx Hyperthyroidism: No - Hematic Hx Anemia: No Hx Sickle Cell Disease: No - Other Systems Hx Alcohol Use: No Hx Substance Use: No Hx Cancer: No Hx Obesity: Yes
--- NOTE | 2022-06-27 05:37 | Progress Note ---
Labor Epidural - Labor Epidural Start Time: 05:07 Stop Time: 05:12 Performed by:: VIOLETTE TSE Procedure: Epidural Requested for Labor Pain. H&P and PT Chart reviewed and consent obtained. Time out performed and the procedure was explained, all questions answered. Patient was placed in a sitting position with monitors applied. The PTs back was prepped and draped in usual sterile fashion. The Skin was localized with 3 mL of 1% lidocaine at L3-L4. A 17-gauge Touhy epidural needle was advanced to MAGALIE with saline at 7 cm and no blood/CSF was noted via epidural needle. Epidural catheter was advanced to 12 cm. There was negative aspiration for blood and CSF in the catheter and negative response to a test dose of 3 ml 1.5% lidocaine w/ Epi and a sterile dressing was applied Patient tolerated the procedure well and there were no immediate complications noted.
[2022-06-27] MEDS ORDERED: LIDOCAINE (2%) 20 MG/1 ML VIAL 20 ML MDV INFILTRATI ONE (06:42)
--- NOTE | 2022-06-27 07:04 | Procedure Note ---
OB Delivery Note - Delivery Date of Delivery: 06/27/22 (0636) Surgeon: FACUNDO XAVIER Estimated blood loss: 200cc - Vaginal Delivery presentation: vertex Delivery position: OA Delivery induction: oxytocin Delivery monitor: external FHT, external uterine Route of delivery: Delivery placenta: spontaneous (0637) Delivery cord: 3 umbilical vessels Episiotomy: none Delivery laceration: 1st degree (perineal) Delivery repair: chromic (2.0) Anesthesia: local, epidural Delivery comments: now induced for morbid obesity, after receiving pitocin, she progressed in labor, received and epidural and became complete and plus 2. She pushed with 2 contractions, delivered a viable baby girl over an intact perineum on 06/26/22 @0636. was placed on maternal abdomen, mouth and nose suctioned, delayed cord clamping, FOB cut the cord, weight 7.3lbs. Placenta delivered at 0637 intact, and discarded. 1st degree perineal laceration repaired with 2.0 chromic. QBL 200ml, FFBU, Both mother and infant stable. - A at 1 minute: 8 at 5 minutes: 9 Gender: Female (7.3lbs)
[2022-06-27] MEDS ORDERED: PROMETHAZINE 25 MG RECT SUPP PR PRN (08:00)
[2022-06-27] MEDS ORDERED: LANOLIN/ZINC/DIMETHICONE (LANSINOH) 7 GM TP PRN ×2 (08:00)
[2022-06-27] MEDS ORDERED: ONDANSETRON 4 MG/2 ML INJ IV PRN (08:00)
[2022-06-27] MEDS ORDERED: PROMETHAZINE 25 MG TAB PO PRN (08:00)
[2022-06-27] MEDS ORDERED: WITCH HAZEL/ GLYCERIN PAD TP PRN (08:00)
[2022-06-27] MEDS ORDERED: MAGNESIUM HYDROXIDE (MOM) ORAL LIQD UDC PO PRN (08:00)
[2022-06-27] MEDS ORDERED: OXYTOCIN DRIP 30 UNITS/500 ML BAG IV SCH (08:00)
[2022-06-27] MEDS ORDERED: diphenhydrAMINE 25 MG CAP PO PRN (08:00)
[2022-06-27] MEDS ORDERED: BENZOCAINE/MENTHOL 20/0.5% TOP SPRAY 56 GM TP PRN (08:00)
[2022-06-27] MEDS ORDERED: ACETAMINOPHEN 325 MG TAB PO PRN (08:00)
[2022-06-27] MEDS: IBUPROFEN 600 MG TAB PO SCH ×3 (08:15→20:00)
[2022-06-27] MEDS ORDERED: SENNOSIDES/DOCUSATE SODIUM 8.6/50 MG TAB PO SCH (09:00)
[2022-06-27] MEDS ORDERED: HYDROCORTISONE 25 MG RECTAL SUPP PR PRN (10:00)
[2022-06-27] MEDS: HYDROcodone/ACETAMINOPHEN 5-325 MG TAB PO PRN ×2 (16:25→22:11)
[2022-06-27 18:19] LABS: Hematocrit 32.4 % (30.3-42.9); Hemoglobin 11.2 gm/dl (10.1-14.3)
[2022-06-27] MEDS: valACYclovir 500 MG TAB PO SCH (18:25)
[2022-06-27] MEDS: DOCUSATE SODIUM 100 MG CAP PO SCH (22:01)
[2022-06-28] MEDS: IBUPROFEN 600 MG TAB PO SCH ×2 (05:47→13:00)
[2022-06-28] MEDS ORDERED: TETANUS,DIPH,PERTUSS(ACELL) VACCINE 0.5 ML SYRINGE IM ONE (06:00)
--- NOTE | 2022-06-28 10:55 | Progress Note ---
Assessment and Plan - Patient Problems (1) Morbid obesity Current Visit: Yes Status: Acute Plan to address problem: Patient is doing well Discharge home Subjective - Subjective Date of service: 06/28/22 Interval history: Patient is currently without complaints. Her pain is well controlled. She is tolerating regular diet.. Patient reports: appetite normal, voiding normally, pain well controlled : doing well Objective - Vital Signs Latest vital signs: Vital Signs Temp Pulse Resp BP Pulse Ox Pulse Ox 06/28/22 08:01 98.2 F 69 18 106/61 97 06/28/22 06:47 18 06/28/22 05:47 18 06/27/22 23:37 98.2 F 74 20 121/67 100 06/27/22 23:11 18 06/27/22 22:11 20 06/27/22 20:00 18 100 06/27/22 19:20 18 06/27/22 18:26 98 06/27/22 16:30 98 06/27/22 16:16 98.1 F 74 20 111/63 96 06/27/22 14:23 98 06/27/22 12:13 98 06/27/22 12:11 98.0 F 86 20 122/65 96 Intake and Output 06/27/22 06/28/22 06/28/22 22:59 06:59 14:59 Intake Total 240 360 120 Balance 240 360 120 Intake: Oral 240 240 120 Intake, Free Water 120 Other: Total, Intake Amount 240 240 120 # Voids Void 1 1 1 - Exam Uterus: Present: normal, firm
--- NOTE | 2022-06-28 10:56 | Discharge Summary ---
Providers - Providers Date of Admission: 06/25/22 21:37 Date of discharge: 06/28/22 Attending physician: VITA YAN Primary care physician: VITA YAN Hospitalization Reason for admission: induction of labor Delivery: Discharge diagnosis: IUP at term delivered Hospital course: The patient was admitted for induction of labor secondary to morbid obesity. She had a uncomplicated vaginal delivery. Her course was uneventful. Condition at discharge: Good Disposition: 01 HOME / SELF CARE / HOMELESS - Discharge Diagnoses (1) Morbid obesity Status: Acute Plan - Discharge Medications Prescriptions: Ibuprofen [Motrin] 800 mg PO Q8HR PRN #30 tablet PRN Reason: Pain , Severe (7-10) HYDROcodone/APAP 5-325 [[place] 5/325] 1 each PO Q6HR PRN #15 tablet PRN Reason: Pain - Provider Discharge Summary Activity: no sex for 6 weeks, no heavy lifting 4 weeks, no strenuous exercise Diet: routine Instructions: routine Additional instructions: [] Smoking cessation referral if applicable(refer to patient education folder for contact #) [] Refer to [facility]'s [facility] Booklet Call your doctor immediately for: * Fever > 100.5 * Heavy vaginal bleeding ( >1 pad per hour) * Severe persistent headache * Shortness of breath * Reddened, hot, painful area to leg or breast * Schedule visit in 4 weeks - Follow up plan
[2022-06-28] MEDS: valACYclovir 500 MG TAB PO SCH (13:00)
[2022-06-28] MEDS: DOCUSATE SODIUM 100 MG CAP PO SCH (13:00)
[2022-06-28 15:04] VITALS: BP 106/60
== END 2022-06-28 15:10 | disposition home or self-care (01) | DRG 775 ==
LOC: TRG 20:49 → LD 20:51 → TRG 22:58 → OB 06-27 09:39
PROVIDERS: ADMIT Obstetrics & Gynecology; ATTEND Obstetrics & Gynecology
PROC: 10E0XZZ Delivery of Products of Conception, External Approach (ICD-10-PCS; principal; 2022-06-27)
PROC: 0HQ9XZZ Repair Perineum Skin, External Approach (ICD-10-PCS; 2022-06-27)
PROC: 3E0R3BZ Introduction of Anesthetic Agent into Spinal Canal, Percutaneous Approach (ICD-10-PCS; 2022-06-27)
PROC: 00HU33Z Insertion of Infusion Device into Spinal Canal, Percutaneous Approach (ICD-10-PCS; 2022-06-27)
PROC: 3E0234Z Introduction of Serum, Toxoid and Vaccine into Muscle, Percutaneous Approach (ICD-10-PCS; 2022-06-28)
DX: O99.214 Obesity complicating childbirth (principal); Z20.822 Contact with and (suspected) exposure to COVID-19; E66.01 Morbid (severe) obesity due to excess calories; O70.0 First degree perineal laceration during delivery; Z3A.39 39 weeks gestation of pregnancy; Z37.0 Single live birth; Z23 Encounter for immunization
CPT/HCPCS: 36415; 59200; 85014; 85018; 85027; 86850; 86900; 86901; 90471; 90715; 96360; 96365; 96367; 96374; 96375; 96376; G0378; J3490; J0595; J0696; J2405; J2590; J3010; J7120; U0003